=== PATIENT | female | born 1970 | race Caucasian/White ===

== ENCOUNTER 2019-05-03 09:05 | Emergency (ER) | payer BC ==
--- NOTE | 2019-05-04 08:15 | US ---
DATE OF SERVICE: 05/03/2019 CLINICAL DATA: Pelvic Pain Pelvic Ultrasound: The patient is status post partial hysterectomy. There is a 1.6 cm cystic structure adjacent to the cervical cuff consistent with a nabothian cyst. The right ovary is enlarged. It measures 7.3 x 4.6 x 5.2 cm. It has heterogeneous echotexture and contains multiple hypoechoic lesions most likely representing complicated ovarian cysts. The largest measures 2.1 cm in diameter. There is also free fluid adjacent to the right ovary and right adnexa. This is probably related to a ruptured ovarian cyst. The possibility of infectious or inflammatory process should be considered. The left ovary measures 2.9 x 1.6 x 1.8 cm. There is a small hypoechoic lesion within it consistent with a small cyst. There is Doppler flow noted in both ovaries. No other significant findings. Follow up ultrasound is recommended. JORDYN
--- NOTE | 2019-05-04 08:48 | ER ---
DATE OF SERVICE: 05/03/2019 REASON FOR EMERGENCY ROOM VISIT: Pelvic pain. HISTORY: This 48-year-old woman and her are vacationing in the area from the [facility], and she presents with lower abdominal pain. On April 24, back in the [facility], she was evaluated for pelvic pain and lower abdominal pain that had been present for approximately 4 days. Subsequent ultrasound and CT exam revealed that she had a 2.8 cm right ovarian cyst, and it did have some free fluid around it, suggesting a leak or rupture at that time. The pain subsided somewhat and remained stable until yesterday when it seemed to increase quite a bit, particularly last evening. By this morning, the pain has subsided, but because of this, she came in to be checked. She has not had any fever or chills. She denies any nausea or vomiting or diarrhea or constipation. She denies any irritative voiding symptoms or urinary symptoms at all. She has had a hysterectomy in the past, but both ovaries were left behind. This was done in 2011. PAST SURGERY HISTORY: 1. Breast cancer with lumpectomy x2 followed by radiation in 2017 through 2018. She is currently on tamoxifen. 2. Left kidney surgery approximately 20 years ago. 3. Hysterectomy 2011 for benign disease. MEDICATIONS: Tamoxifen. ALLERGIES: NONE TO MEDICATIONS. REVIEW OF SYSTEMS: All pertinent positives and negatives as listed in the HPI. PHYSICAL EXAMINATION: GENERAL: Reveals a pleasant woman who is alert and in no acute distress. VITAL SIGNS: She is afebrile. Her pulse is 76, blood pressure 126/75, respiratory rate 18, O2 sats 98%. HEENT: Unremarkable. No scleral icterus. NECK: Supple. No adenopathy. CHEST: Clear to auscultation. CARDIAC: Regular rate without murmur. ABDOMEN: Nondistended. She has some mild tenderness to deep palpation in the lower abdomen, particularly in the right lower quadrant region. There is no rebound tenderness or guarding. No palpable masses noted. She has no organomegaly. No other palpable masses were noted. EXTREMITIES: Normal pulses. No edema. SKIN: No rashes. LABORATORY DATA: She had a CBC and her white count was normal at 10,500, hemoglobin is normal at 12.8. We went ahead and obtained a pelvic ultrasound which showed that she had an enlarged right ovary, measuring 7.3 x 4.6 x 5.2 cm. It is said to have a heterogeneous echotexture with multiple hypoechoic lesions most likely representing complicated ovarian cysts. The largest of these measured 2.1 cm in diameter. Free fluid was noted to be adjacent to the right ovary and adnexa area suggestive of a recently ruptured ovarian cyst at some time. The left ovary was 2.9 x 1.6 x 1.8 cm with a small cyst. There was normal Doppler flow in both ovaries. IMPRESSION: 1. Right ovarian cyst with rupture. 2. Complicated multicystic enlarged right ovary. PLAN: She has had these symptoms for nearly 2 weeks now, and her pain is less versus yesterday. I suspect the possibility is that she leaked yesterday, although she did have some free fluid around her right adnexa, according to the report from April 24 when she had evaluation in the [facility]. Nonetheless, there is no evidence that she is actively hemorrhaging at this time. I think her symptoms are all related to the cyst, and I explained to them these things may take 1-3 months to resolve, so this is not at all unusual. Her blood pressure is normal. She is afebrile. Her white count is normal, and she is hemodynamically stable. That, combined with the fact that her symptoms are less in terms of pain than they were yesterday, is reassuring. I recommended that they simply stay the course and that she follow up with her provider when they return to the [facility]. I did discuss with them at considerable length the implications of the findings concerning her enlarged right ovary, and in my opinion, this needs to be more aggressively pursued, possibly to include laparoscopy, etc. The potential for this being a malignant situation was discussed with them, and they understand this. She was given a prescription for tramadol 50 mg, dispensed #8, one q.4 hours p.r.n. pain. She did not think she would need any, but it was reassuring to her to know that she would have some on hand, should her discomfort become more severe while she is staying up here or in her trip back home to the [facility]. I did not think it was necessary for them to hearn back home and cut their vacation short, and both she and her were relieved at this news. If, however, she becomes increasingly uncomfortable, that might be a reasonable alternative. Certainly, if any questions or concerns arise, they can either return or give us a call. All questions were answered. They understand and agree with this plan. ROSANNA/MEE /[id number]
== END 2019-05-03 11:14 | disposition home or self-care (01) ==
LOC: LB.ED 09:05
DX: N83.201 Unspecified ovarian cyst, right side (principal); Z79.899 Other long term (current) drug therapy; Z85.3 Personal history of malignant neoplasm of breast
CPT/HCPCS: 36415; 76830; 85025; 99284-25